=== PATIENT | female | born 1990 | race Caucasian/White ===

== ENCOUNTER 2016-09-01 13:59 | Inpatient (IN) | payer BC, OTHER ==
[~2016-09-01] VITALS: Ht 157.5 cm; Wt 63.0 kg
[~2016-09-01 13:59] MED LIST: ASPI81TA31 PO; ATOR40TA PO; Baclofen PO; CLON0.1T14 PO; DICY20TA28 PO; DIVA500T4 PO; HYDR-3895 PO; IBUP200C5 PO; INSU100I14; INSU100V11; Isosorbide Mononitrate PO; LOSA50TA21 PO; Losartan Potassium PO; Metoprolol Tartrate PO; NICO1PAT44 TD; NITR0.4T SL; PREG25CA PO; QUET200T PO; TRAZ-144 PO; [UNRECOGNIZED DRUG - CODE] MC
[2016-09-02] MEDS ORDERED: MIRALAX 17 GM POWD.PACK PO PRN (14:15)
[2016-09-02] MEDS ORDERED: ONDANSETRON ODT 4 MG TAB.RAPDIS SL PRN (14:15)
[2016-09-02] MEDS ORDERED: DIAZEPAM 10 MG TABLET PO PRN ×2 (14:15)
[2016-09-02] MEDS ORDERED: MAG HYDROX/AL HYDROX/SIMETH 30 ML LIQUID UDC PO PRN (14:15)
[2016-09-02] MEDS ORDERED: DICYCLOMINE HCL 20 MG TABLET PO PRN (14:15)
[2016-09-02] MEDS ORDERED: IBUPROFEN 400 MG TABLET PO PRN (14:15)
[2016-09-02] MEDS ORDERED: LOPERAMIDE HCL 2 MG CAPSULE PO PRN ×2 (14:15)
[2016-09-02] MEDS ORDERED: MAGNESIUM HYDROXIDE 30 ML LIQUID UDC PO PRN (14:15)
[2016-09-02] MEDS ORDERED: LORAZEPAM 2 MG/1 ML VIAL IM PRN (14:15)
[2016-09-02] MEDS ORDERED: DIAZEPAM 5 MG TABLET PO PRN (14:15)
[2016-09-02] MEDS ORDERED: ONDANSETRON 4 MG/2 ML VIAL IM PRN (14:15)
[2016-09-02] MEDS ORDERED: ACETAMINOPHEN 325 MG TABLET PO PRN (14:15)
[2016-09-02] MEDS: PHENOBARBITAL 60 MG TABLET PO SCH ×3 (14:30→21:29)
[2016-09-02 15:48] LABS: BASOPHILS # (AUTO) 0.2 K/uL (0.0-8.0); EOSINOPHILS # (AUTO) 0.1 K/uL (0.0-0.7); EOSINOPHILS % (AUTO) 1.6 % (0.0-7.0); HEMATOCRIT 44.6 % (37-47); HEMOGLOBIN 14.7 G/DL (12.0-16.0); LYMPHOCYTES # (AUTO) 3.2 K/UL (0.8-4.8); LYMPHOCYTES % (AUTO) 34.9 % (20.5-51.5); MEAN CORPUSCULAR HEMOGLOBIN 28.9 UUG (27.0-31.0); MEAN CORPUSCULAR HGB CONC 33 g/dL (32.0-37.0); MONOCYTES # (AUTO) 0.5 K/UL (0.1-1.30); MONOCYTES % (AUTO) 5.4 % (0.0-11.0); NEUTROPHILS # (AUTO) 5.1 K/UL (1.8-8.9); NEUTROPHILS % (AUTO) 56.1 % (38.5-71.5); PLATELET COUNT (AUTO) 296 K/UL (150-450); RED BLOOD CELL COUNT(AUTO) 5.07 MIL/UL (4.2-5.4); WHITE BLOOD COUNT (AUTO) 9.1 K/UL (4.0-11.2)
[2016-09-02] MEDS ORDERED: TOPI50TA24 PO (15:52)
[2016-09-02] MEDS ORDERED: TRAM50TA2 PO (15:52)
[2016-09-02] MEDS ORDERED: ESCI10TA55 PO (15:52)
[2016-09-02] MEDS ORDERED: CLON1TAB4 PO (15:52)
[2016-09-02] MEDS ORDERED: PREG150C PO (15:52)
[2016-09-02] MEDS ORDERED: BUPR-51 PO (15:52)
[2016-09-02 15:53] LABS: ALANINE AMINOTRANSFERASE 19 U/L (14-59); ALKALINE PHOSPHATASE 78 U/L (50-136); AMYLASE 30 U/L (25-115); ASPARTATE AMINOTRANSFERASE 13 U/L (15-37); BILIRUBIN,TOTAL 0.3 mg/dL (0.2-1.0); CARBON DIOXIDE 22 mmol/L (21-32); CHLORIDE 101 mmol/L (98-107); CREATININE 1.2 mg/dL (0.6-1.3); GLUCOSE 246 mg/dL (74-106); LIPASE 68 U/L (73-393); MAGNESIUM 1.8 mg/dL (1.8-2.4); POTASSIUM 3.7 mmol/L (3.5-5.1); TOTAL PROTEIN, SERUM 8.2 g/dL (6.4-8.2); UREA NITROGEN, BLOOD 11 mg/dL (7-18)
[2016-09-02 15:57] LABS: ETHANOL < 3 MG/DL (0-0)
[2016-09-02 16:00] VITALS: BP 127/78
[2016-09-02 16:03] LABS: THYROID STIMULATING HORMONE 0.641 mIU/mL (0.358-3.740)
--- NOTE | 2016-09-02 16:45 | NUR ---
ADMISSION NOTE Pt is a 25 year old female, admitted on 09/02/16 at 1500 for Benzo Dependence and medically supervised withdrawals. Pts skin and body check completed, no contraband found, Pts skin is intact with no wounds lesions or abnormalities noted upon assessment . Pt awake, alert, oriented x 3, gait steady, pt is ambulatory without assistance. Pt weights 139 pounds and her height is 52. Pt reported having multiple seizures due to withdrawals with the most recent one being in April 2016. Pt escorted to room 303 where the rest of assessment was completed. Pt is primary source of information, information consistent, speech coherent. Pt brought home medications which have been reconciled. Pt refused PNA Vaccinations stating that she will receive it somewhere else. Pt states that she has a primary care physician by the name Marek who is located in [place] she denies having a psychiatrist or a psychologist. Pt requested to be full code, controlled Carb diet due to her DM I. Pt was placed on fall and seizure precautions, Pt denies any food or drug allergies . Her last BM was on 09/01/16. Pt states that she lives alone in an apartment building. Pt stated that she smokes a pack a day. Pt denies being admitted to a hospital in the past 30 days, Pt is not a candidate for MRSA. Pts initial vital signs are BP: 127/78, Temp: 98.1, Pulse: 72 SPO2: 100% RR:18 and states that she has 0/10 pain. Pts initial CIWA was a 4. Pt reports PMH of Anxiety, Depression, DM I, a stent placement due to an HI, Diabetic kidney disease and diabetic neuropathy. Pts longest sobriety lasted 11 months which was in 2016. Pt stated that she does not attend AA meetings. Pt denies any suicidal or homicidal ideations. Substance use Hx: 1.Xanax: Pt reported first using the drug in 2008, she has been on and off and has recently relapsed 2 months ago using 8mg PO daily for 2 months. 2.Klonopin: Pt reported first using the drug in 2008, she has been on and off and has recently relapsed 2 months ago using 4mg PO daily for 2 months. Rehab history: [facility] in 2014 [facility] February 2016 [facility] current admission. Pt cooperative, appears depressed, reports moderate anxiety. Educated on relaxation techniques (deep breathing) pt verbalized understanding. Skin warm and moist from sweat, color pink, consistent throughout the body. Eyes PERLLA, tremors not noted but felt. All extremities with full ROM. Lung sounds clear bilaterally, no cough present, pt denies SOB. Heart rate regular. Cap refill <3 sec. No edema noted. Abdomen soft, round, bowel sounds active x 4, non tender. Pt denies urinary difficulties, urine was provided and sent to lab. Pt oriented to unit, room, equipment, shown how to use call light, provided returned demonstration. Fall precautions and seizure in place. Side rails up x2, call light within reach, bed locked in low position. MD contacted and aware of patients condition. All admitting orders have been placed. Pt is placed on a Modified Phenobarbital taper. Pt refused her Vitamin B injection. Her Initial CIWA score was a 4.
[2016-09-02 17:11] LABS: *URINE HCG, QUAL NEGATIVE (NEGATIVE)
[2016-09-02 17:23] LABS: *AMPHETAMINE, URINE NEGATIVE (NEGATIVE); *CANNABINOID, URINE NEGATIVE (NEGATIVE); *COCCAINE, URINE NEGATIVE (NEGATIVE); *OPIATE, URINE NEGATIVE (NEGATIVE); *PHENCYCLIDINE SCREEN,URINE NEGATIVE (NEGATIVE)
[2016-09-02] MEDS ORDERED: THIAMINE HCL 200 MG/2 ML VIAL IM ONE (17:30)
--- NOTE | 2016-09-02 17:36 | NUR ---
Scheduled dose held A scheduled dose of phenobarbital was held at 1430 due to patient not being able to provide urine for a drug screen as well as a test. Pharmacy was not able to verify the medication until the urine results came back. MD contacted and aware, no new orders obtained will continue to monitor.
[2016-09-02 17:37] LABS: *BARBITURATE, URINE NEGATIVE (NEGATIVE)
[2016-09-02] MEDS ORDERED: [UNRECOGNIZED DRUG - OTHER] SQ PRN (18:00)
[2016-09-02] MEDS ORDERED: BLOOD SUGAR DIAGNOSTIC 1 EACH STRIP VI SCH ×2 (18:00)
[2016-09-02] MEDS ORDERED: PATIENT MAY USE OWN MED- MD OK SQ PRN (18:00)
[2016-09-02] MEDS ORDERED: NITROGLYCERIN 0.4 MG/TAB BOTTLE SL PRN (18:00)
[2016-09-02] MEDS ORDERED: DEXTROSE 50% 50 ML DISP.SYRIN IV PRN (18:30)
--- NOTE | 2016-09-02 19:00 | NUR ---
Tramadol 50mg po prn given for bilateral foot pain due to diabetic neuropathy. Pain 07/29.
[2016-09-02] MEDS: TRAMADOL HCL 50 MG TABLET PO PRN (19:01)
--- NOTE | 2016-09-02 19:16 | NUR ---
End Of Shift Pt remains compliant with the treatment plan. Patient encouraged adequate PO fluid intake as tolerated. Upon assessment patient presented with mild anxiety, and barely sweating with his last CIWA score was a 4. @1600. Detox medication effective at reducing withdrawal symptoms. Patient encouraged to attend group therapies/sessions to learn new coping skills to recent relapse, patient denies SI/HI. Pt ate all of her meals her total fluid intake was 500ml with 1 void and no bowel movement Pt received PRN Ultram for pain, medication was effective.Safety measures in place. Call light kept within reach. Patient endorsed to warehouse shift supervisor nurse, all pertinent information discussed.
--- NOTE | 2016-09-02 19:56 | NUR ---
START OF SHIFT NOTE Pt is a 25 y/o female admitted for Xanax and Klonopin dependence and use. Pt has NKA but reported a PMH of heart attacks (2013,2015), kidney disease, ankle bilateral fracture. Pt is a type 1 diabetic and has a insulin pump. Per day shift nurse pt was placed on a Modified Phenobarbital taper. Pt received Tramadol 50 mg PO PRN during the day shift. Last CIWA: 4 (1600). At this time pt is asleep in bed with no signs of discomfort/distress noted. Assessment deferred until pt is awake. All safety measures in place. Will continue to monitor.
[2016-09-02 20:00] VITALS: BP 112/81
--- NOTE | 2016-09-02 20:00 | NUR ---
TRAMADOL PRN REASSESSMENT Pt stated " My foot feel better." PRN effective. Will continue to monitor.
[2016-09-02] MEDS: METOPROLOL TARTRATE 25 MG TABLET PO SCH (21:29)
[2016-09-02] MEDS: LAMOTRIGINE 25 MG TABLET PO SCH (21:30)
[2016-09-02] MEDS: PREGABALIN 25 MG CAPSULE PO SCH (21:32)
[2016-09-02] MEDS: DIVALPROEX ER 500 MG TAB.SR.24H PO SCH (21:32)
[2016-09-02] MEDS: ATORVASTATIN 40 MG TABLET PO SCH (21:33)
[2016-09-02] MEDS: BACLOFEN 20 MG TABLET PO PRN (21:49)
--- NOTE | 2016-09-02 21:49 | NUR ---
BACLOFEN, BENTYL, AND ZOFRAN PRN ADMINISTRATION Pt stated " I'm nauseous, my body aches, and I have stomach cramps. Can I have something?" Baclofen 20 mg PO PRN, Bentyl 20 mg PO PRN, and Zofran 4 mg ODT PRN was given. Pt was encouraged to notify staff of any changes in condition or of any concerns. Pt verbalized an understanding. All safety measures in place. Will monitor for effectiveness.
[2016-09-02] MEDS: BLOOD SUGAR DIAGNOSTIC 1 EACH STRIP VI SCH (21:59)
[2016-09-02] MEDS ORDERED: QUETIAPINE FUMARATE 100 MG TABLET PO SCH (22:15)
[2016-09-02] MEDS ORDERED: QUETIAPINE FUMARATE 100 MG TABLET ONE (22:32)
--- NOTE | 2016-09-02 22:49 | NUR ---
BACLOFEN, BENTYL, AND ZOFRAN PRN REASSESSMENT Pt stated " The nausea and stomach cramps went away. I'm not that achy either." PRNS effective. All safety measures in place. Will continue to monitor.
--- NOTE | 2016-09-02 23:52 | NUR ---
SEROQUEL PRN ADMINISTRATION Pt stated " I feel anxious and just agitated. Can I have something ?" Seroquel 100 mg PO PRN was given. Pt was encouraged to notify staff of any changes in condition or of any concerns. Pt verbalized an understanding. All safety measures in place. Will monitor for effectiveness.
[2016-09-03] VITALS: BP 103/70
[2016-09-03] MEDS ORDERED: CLONIDINE HCL 0.1 MG TABLET ONE (00:45)
--- NOTE | 2016-09-03 00:52 | NUR ---
SEROQUEL PRN REASSESSMENT Pt stated " I feel calmer. I think I need to talk to the doctor tomorrow. " PRN effective. Will continue to monitor.
[2016-09-03] MEDS: CLONIDINE HCL 0.1 MG TABLET PO PRN ×2 (01:00→23:58)
--- NOTE | 2016-09-03 04:00 | NUR ---
VITALS REFUSED/ CIWA DEFERRED Pt refused to have vitals taken at this time. Pt was encouraged x 3 with risks and benefits explained, but the pt still declined. Pt is asleep in bed with no signs of discomfort/distress noted. CIWA assessment deferred until pt is awake. All safety measures in place. Will continue to monitor. Addendum: 09/03/16 at 0622 by GABRIEL MANUEL LVN Amended: Links added.
--- NOTE | 2016-09-03 06:53 | NUR ---
END OF SHIFT NOTE Pt is a 25 y/o female admitted for Xanax and Klonopin dependence and use. Pt has NKA but reported a PMH of heart attacks (2013,2015), kidney disease, ankle bilateral fracture. Pt is a type 1 diabetic and has a insulin pump. Pt was placed on a Modified Phenobarbital taper and is tolerating medication well, with no s/e or a/r reported. Pt received Baclofen 20 mg PO PRN, Bentyl 20 mg PO PRN, Zofran 4 mg ODT PRN, and Seroquel 100 mg PO PRN during the shift. Last CIWA: 1 (0000). Pt slept for a total of 5 hours. All safety measures in place. Will endorse to the oncoming nurse.
[2016-09-03] MEDS ORDERED: QUETIAPINE FUMARATE 100 MG TABLET PO PRN (07:25)
--- NOTE | 2016-09-03 07:26 | NUR ---
START OF SHIFT NOTE Received report from night nurse, 25 year old female admitted for Benzo dependence. Pt reported a PMH of heart attacks (2013,2015), kidney disease, ankle bilateral fracture. Pt is a type 1 diabetic and has a insulin pump. Per day shift nurse pt was placed on a Modified Phenobarbital taper. Pt received PRN Seroquel, Bentyl, Baclofen, Zofran,during the restaurant shift leader. Last CIWA-1. Currently pt is asleep in bed with no signs of discomfort/distress noted responsive to verbal and tactile stimuli. Breathing normal no SOB noted. Safety measures in place, Call light within reach. Will continue to monitor.
[2016-09-03 08:00] VITALS: BP 116/67
--- NOTE | 2016-09-03 08:00 | NUR ---
BLOOD SUGAR RESULT PT's blood sugar noted 317mg/dl, pt self administered 6 units of regular insulin. notified.
[2016-09-03] MEDS: THIAMINE HCL 100 MG TABLET PO SCH (08:19)
[2016-09-03] MEDS: ASPIRIN 81 MG TAB.CHEW PO SCH (08:19)
[2016-09-03] MEDS: LAMOTRIGINE 25 MG TABLET PO SCH ×2 (08:19→20:46)
[2016-09-03] MEDS: FOLIC ACID 1 MG TABLET PO SCH (08:19)
[2016-09-03] MEDS: DOCUSATE SODIUM 250 MG CAPSULE PO SCH (08:19)
[2016-09-03] MEDS: METOPROLOL TARTRATE 25 MG TABLET PO SCH ×2 (08:20→20:47)
[2016-09-03] MEDS: LOSARTAN POTASSIUM 50 MG TABLET PO SCH (08:20)
[2016-09-03] MEDS: PHENOBARBITAL 60 MG TABLET PO SCH ×4 (08:21→20:47)
[2016-09-03] MEDS: DIVALPROEX ER 500 MG TAB.SR.24H PO SCH ×2 (08:21→20:47)
[2016-09-03] MEDS: MULTIVITAMINS,THERAPEUTIC TABLET PO SCH (08:21)
[2016-09-03] MEDS: ISOSORBIDE DINITRATE 30 MG PO SCH (08:22)
[2016-09-03] MEDS: BLOOD SUGAR DIAGNOSTIC 1 EACH STRIP VI SCH ×4 (08:27→20:45)
[2016-09-03] MEDS: NICOTINE 14 MG/24HR PATCH TD SCH (09:00)
[2016-09-03] MEDS ORDERED: buPROPion XL 150 MG TAB.SR.24H PO SCH (09:00)
[2016-09-03] MEDS ORDERED: TUBERCULIN,PURIF.PROT.DERIV. 5 TU/0.1 ML TEST ID ONE (09:00)
[2016-09-03] MEDS: PREGABALIN 25 MG CAPSULE PO SCH ×3 (09:04→20:46)
[2016-09-03] MEDS: BACLOFEN 20 MG TABLET PO PRN (11:02)
[2016-09-03] MEDS: TRAMADOL HCL 50 MG TABLET PO PRN ×2 (11:05→23:57)
--- NOTE | 2016-09-03 11:06 | NUR ---
PRN TRAMADOL/BACLOFEN Pt c/o of bilateral foot pain due to diabetic neuropathy, muscle spasms. Administered PRN Tramadol 50mg Po, Baclofen 20mg Po given for Pain/muscle spasms 07/29. Will cont to monitor and reassess.
--- NOTE | 2016-09-03 11:51 | NUR ---
REFUSED ACCU CHECK Pt refused Accu check at 1130, offered x3 risk and benefits explained. Patient still refused. notified
[2016-09-03 12:00] VITALS: BP 100/60
[2016-09-03] MEDS ORDERED: ONDANSETRON ODT 4 MG TAB.RAPDIS SL PRN (12:00)
[2016-09-03] MEDS ORDERED: ONDANSETRON 4 MG/2 ML VIAL IM PRN (12:00)
--- NOTE | 2016-09-03 12:06 | NUR ---
REASSESSMENT Upon reassessment pt reported medications effective, pain decreased 2/10, muscle cramps subside. Will cont to monitor.
[2016-09-03] MEDS: BACLOFEN 20 MG TABLET PO SCH ×4 (12:40→20:46)
[2016-09-03] MEDS ORDERED: DIAZEPAM 10 MG TABLET PO PRN ×2 (14:00)
[2016-09-03] MEDS: DICYCLOMINE HCL 20 MG TABLET PO SCH ×2 (14:00→20:46)
[2016-09-03] MEDS ORDERED: DIAZEPAM 5 MG TABLET PO PRN (14:00)
[2016-09-03 16:00] VITALS: BP 111/73
--- NOTE | 2016-09-03 16:30 | NUR ---
REFUSED ACCU CHECK Pt refused Accu check at 1630, offered x3 risk and benefits explained. Patient still refused. notified
[2016-09-03] MEDS ORDERED: PATIENT MAY USE OWN MED- MD OK PO SCH (17:00)
--- NOTE | 2016-09-03 18:55 | NUR ---
END OF SHIFT NOTE Pt cont with modified Phenobarbital taper tolerating well. Pt presented with muscle aches, bilateral foot pain during shift. Pt given PRN Baclofen,Tramadol noted to be effective. Last CIWA score noted 6. Pt attended groups and activities. During shift pt refused x2 blood sugar MD notified. Encouraged pt increased Po fluids intake as tolerated and attend groups and activities to learn new coping skills. Vital signs remained stable. Pt remained compliant with care and medications. During shift pt was seen by MD Tillman, and Psychiatrist with new orders. Baclofen changed from PRN to routine. Safety measures in place, Call light within reach. Pt endorsed to night nurse in stable condition.
--- NOTE | 2016-09-03 19:50 | NUR ---
Start of Shift Note: Report received from day shift nurse. Pt is a 25 Y/O female admitted on 09/02/16 for medically-supervised withdrawal from benzodiazepines. Pt reported taking 8mg of Xanax and 4mg of Klonopin daily for two months. Pt is on a modified 7-day Phenobarbital taper. Pt received with last CIWA=6, and PRN Baclofen and PRN Ultram were given during day shift. Pt is a full code, reports NKDA/NKFA, and is on a CC/Diabetic diet. 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 Pt received in room and reports anxiety, tremor, and diaphoresis. Bed is in low position and locked, side rails up x2, call light within reach. Will continue to monitor.
[2016-09-03 20:00] VITALS: BP 113/74
[2016-09-03] MEDS: QUETIAPINE FUMARATE 200 MG TABLET PO SCH ×2 (20:46→22:13)
[2016-09-03] MEDS: ATORVASTATIN 40 MG TABLET PO SCH (20:47)
--- NOTE | 2016-09-03 21:00 | NUR ---
FSBS: Fingerstick blood glucose at HS is 98 mg/dl.
--- NOTE | 2016-09-03 22:10 | NUR ---
21:00 Seroquel Late: Scheduled 21:00 Seroquel administered late due to patient being on the smoking patio without a smoking pass from primary nurse.
[2016-09-03] MEDS: HYDROXYZINE PAMOATE 25 MG CAPSULE PO PRN (23:57)
--- NOTE | 2016-09-03 23:59 | NUR ---
PRN's Tramadol, Clonidine, and Vistaril: Patient complains of 7/10 neuropathic pain in bilateral feet. Administered PRN Tramadol as ordered. Patient complains of severe anxiety and diaphoresis. Patient requests both Vistaril and Clonidine. Administered PRN Clonidine and PRN Vistaril as ordered. Will continue to monitor.
[2016-09-04] VITALS: BP 118/84
--- NOTE | 2016-09-04 01:00 | NUR ---
PRN Reassessment: Patient is in bed with eyes closed. Respirations are even and unlabored at 14. Patient is difficult to arouse. No s/s of acute distress noted. PRN's Tramadol, Vistaril, and Catapres effective AEB patient's ability to rest. All safety precautions are in place. Will continue top monitor.
[2016-09-04 04:00] VITALS: BP 121/76
--- NOTE | 2016-09-04 04:00 | NUR ---
CIWA Deferred: CIWA assessment is deferred for sleep. V/S stable. All safety precautions are in place. Will continue to monitor. Addendum: 09/04/16 at 0454 by OKSANA WHITT RN Amended: Links added.
--- NOTE | 2016-09-04 06:47 | NUR ---
Pt is a 25 Y/O female admitted to [facility] on 09/02/16 for medically-supervised withdrawal from benzodiazepines. 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 Pt is a full code. Pt reports NKDA/NKFA. Pt is on a CC/Diabetic diet. Pt reported taking 8mg of Xanax and 4mg of Klonopin daily for two months, and was placed on a modified 7-day Phenobarbital taper. Scheduled medication regime effectively managed s/s of withdrawal this shift, in addition to PRN Catapres and PRN Vistaril for anxiety. Last CIWA=5 at 00:00.V/S stable throughout shift. PRN Tramadol was given for neuropathic pain. Total fluid intake this shift: 1105 ml; output: urine x 3 and BM x 0. Pt is currently in bed and slept 4 hours this shift. All needs attended and met. Pt endorsed to day shift nurse. Addendum: 09/04/16 at 0648 by OKSANA WHITT RN Last FSBG was 98 mg/dl at 21:00
[2016-09-04] MEDS: BLOOD SUGAR DIAGNOSTIC 1 EACH STRIP VI SCH ×4 (07:30→21:00)
--- NOTE | 2016-09-04 07:43 | NUR ---
START OF SHIFT NOTE Received report from night nurse, 25 year old female admitted for Benzo dependence. Pt reported a PMH of heart attacks (2013,2015), kidney disease, ankle bilateral fracture. Pt is a type 1 diabetic and has a insulin pump. Pt cont on a Modified Phenobarbital taper. Pt received PRN Tramadol, Clonidine, Vistaril, during the hourly shift manager. Last CIWA-5, slept for 4 hours. Last BS was 98mg/dl. Currently pt is asleep in bed with no signs of discomfort/distress noted responsive to verbal and tactile stimuli. Breathing normal no SOB noted. Safety measures in place, Call light within reach. Will continue to monitor.
[2016-09-04 08:00] VITALS: BP 115/77
--- NOTE | 2016-09-04 08:00 | NUR ---
REFUSED ACCU CHECK Pt refused Accu check at 0730, offered x3 risk and benefits explained. Patient still refused. notified
[2016-09-04] MEDS: DOCUSATE SODIUM 250 MG CAPSULE PO SCH (08:43)
[2016-09-04] MEDS: THIAMINE HCL 100 MG TABLET PO SCH (08:43)
[2016-09-04] MEDS: DICYCLOMINE HCL 20 MG TABLET PO SCH ×3 (08:43→21:47)
[2016-09-04] MEDS: PHENOBARBITAL 60 MG TABLET PO SCH ×3 (08:43→21:46)
[2016-09-04] MEDS: BACLOFEN 20 MG TABLET PO SCH ×4 (08:43→21:48)
[2016-09-04] MEDS: LAMOTRIGINE 25 MG TABLET PO SCH ×2 (08:44→21:47)
[2016-09-04] MEDS: MULTIVITAMINS,THERAPEUTIC TABLET PO SCH (08:44)
[2016-09-04] MEDS: ASPIRIN 81 MG TAB.CHEW PO SCH (08:44)
[2016-09-04] MEDS: LOSARTAN POTASSIUM 50 MG TABLET PO SCH (08:44)
[2016-09-04] MEDS: FOLIC ACID 1 MG TABLET PO SCH (08:44)
[2016-09-04] MEDS: ESCITALOPRAM OXALATE 10 MG TABLET PO SCH (08:44)
[2016-09-04] MEDS: METOPROLOL TARTRATE 25 MG TABLET PO SCH ×2 (08:45→21:50)
[2016-09-04] MEDS: PREGABALIN 25 MG CAPSULE PO SCH ×3 (08:45→21:48)
[2016-09-04] MEDS: DIVALPROEX ER 500 MG TAB.SR.24H PO SCH ×2 (08:45→21:51)
[2016-09-04] MEDS: ISOSORBIDE DINITRATE 30 MG PO SCH (08:47)
[2016-09-04] MEDS: NICOTINE 14 MG/24HR PATCH TD SCH (08:48)
[2016-09-04] MEDS: TRAMADOL HCL 50 MG TABLET PO PRN ×3 (08:58→23:05)
--- NOTE | 2016-09-04 08:58 | NUR ---
PRN TRAMADOL Pt c/o of bilateral foot pain due to diabetic neuropathy. Administered PRN Tramadol 50mg Po given for Pain 08/28. Will cont to monitor and reassess.
--- NOTE | 2016-09-04 09:58 | NUR ---
REASSESSMENT Upon reassessment pt reported medication effective, pain decreased /. Will cont to monitor.
--- NOTE | 2016-09-04 11:30 | NUR ---
REFUSED ACCU CHECK Pt refused Accu check at 1130, offered x3 risk and benefits explained. Patient still refused. notified
[2016-09-04 12:00] VITALS: BP 104/60
[2016-09-04] MEDS ORDERED: LORAZEPAM 1 MG TABLET PO ONE (14:00)
[2016-09-04 14:08] LABS: HEPATITIS B SURFACE AG Negative (Negative)
[2016-09-04 16:00] VITALS: BP 118/57
--- NOTE | 2016-09-04 16:30 | NUR ---
REFUSED ACCU CHECK Pt refused Accu check at 1630, offered x3 risk and benefits explained. Patient still refused. notified
--- NOTE | 2016-09-04 17:10 | NUR ---
PRN TRAMADOL Pt c/o of bilateral foot pain due to diabetic neuropathy. Administered PRN Tramadol 50mg Po given for Pain 07/29. Will cont to monitor and reassess.
--- NOTE | 2016-09-04 18:10 | NUR ---
REASSESSMENT Upon reassessment pt reported medication effective, pain decreased 2/10. Will cont to monitor.
--- NOTE | 2016-09-04 18:57 | NUR ---
END OF SHIFT NOTE Pt cont with modified Phenobarbital taper tolerating well. Pt presented with muscle aches, bilateral foot pain during shift. Pt given PRN Tramadolx2 noted to be effective. Last CIWA score noted 5. Pt attended groups and activities. During shift pt refused x3 blood sugar MD notified. Encouraged pt increased Po fluids intake as tolerated and attend groups and activities to learn new coping skills. Vital signs remained stable. Pt remained compliant with care and medications. During shift pt was seen by Nehal Larios, and Psychiatrist. Pt received x1 dose of Ativan 2mg. Safety measures in place, Call light within reach. Pt endorsed to night nurse in stable condition.
--- NOTE | 2016-09-04 19:15 | NUR ---
START OF SHIFT Received 25 year old female patient admitted on 09/02/16 for Xanax and Klonopin dependency. Pt is full code with NKA. She is on a controlled carb diet. She reports a PMHx of DM type I, heart attack 2013 & 2015, kidney disease, ankle bilateral fracture, anxiety, seizure, panic disorder, diabetic neuropathy, CAD, unspecified arrythmia, HTN, and dyslipidemia. She report taking Xanax PO 8 mg daily for 2 months, last dose 8 mg on 09/01/16, Klonopin 4 mg daily for 2 months. Last dose was 4 mg on 09/01/16. She is placed on a modified phenorbabital taper started on 09/02/16 and tolerating well. Per endorsement, pt received Tramadol x2, And Ativan 2 mg x1. She has also been refusing her Accucheck is aware. Pt is alert and oriented x4, breathing is even and unlabored, safety measurse in place. Will continue to monitor.
[2016-09-04 20:00] VITALS: BP 131/85
[2016-09-04] MEDS: ATORVASTATIN 40 MG TABLET PO SCH (21:47)
--- NOTE | 2016-09-04 21:50 | NUR ---
ACCU CHECK REFUSAL Pt refused 2100 Accu check. Risks and benefits explained x3, pt still refused. MD made aware. Will continue to monitor.
[2016-09-04] MEDS: QUETIAPINE FUMARATE 200 MG TABLET PO SCH (21:53)
[2016-09-04] MEDS ORDERED: METHOCARBAMOL 750 MG TABLET PO PRN (22:45)
[2016-09-04] MEDS ORDERED: METHOCARBAMOL 750 MG TABLET PO ONE (22:45)
[2016-09-04] MEDS: CLONIDINE HCL 0.1 MG TABLET PO PRN (23:03)
[2016-09-04] MEDS: HYDROXYZINE PAMOATE 25 MG CAPSULE PO PRN (23:03)
--- NOTE | 2016-09-04 23:05 | NUR ---
PRN VISTARIL,CLONIDINE, TRAMADOL Pt complains of anxiety, agitation, chills and bilateral burning foot pain /. PRN Vistaril, clonidine and Tramadol administered as ordered. Breathing even and unlabored, call light within reach. Will continue to monitor effectiveness of medications.
--- NOTE | 2016-09-04 23:06 | NUR ---
MD COMMUNICATION Pt complains of muscle aches 09/28. Received new order for Robaxin 750 mg x1. Administered as ordered. Breathing even and unlabored. Will monitor effectiveness of medication.
[2016-09-05] VITALS: BP 120/75
--- NOTE | 2016-09-05 00:05 | NUR ---
PRN VISTARIL, CLONIDINE, TRAMADOL REASSESSMENT PRN medications effective. Pt noted to be more calm, less anxious/agitated. Pt reports decrease in pain to 3/10. Breathing even and unlabored. Will continue to monitor.
--- NOTE | 2016-09-05 00:06 | NUR ---
ROBAXIN REASSESSMENT One time Robaxin effective. Pt reports decrease in muscle aches /. Breathing even and unlabored. Will monitor.
[2016-09-05 04:00] VITALS: BP 115/76
--- NOTE | 2016-09-05 04:00 | NUR ---
CIWA DEFERRED CIWA deferred d/t pt lying in bed with eyes closed noted to be asleep. Respirations 16, breathing is even and unlabored, safety measures in place. Will monitor.
--- NOTE | 2016-09-05 07:08 | NUR ---
END OF SHIFT Pt is a 25 year old female patient admitted on 09/02/16 for Xanax and Klonopin dependency. Pt is full code with NKA. She is on a controlled carb diet. She reports a PMHx of DM type I, heart attack 2013 & 2015, kidney disease, ankle bilateral fracture, anxiety, seizure, panic disorder, diabetic neuropathy, CAD, unspecified arrythmia, HTN, and dyslipidemia. She continues on a modified phenobarbital taper started on 09/02/16 and tolerating well. At 2305 she received PRN Vistaril, clonidine, and tramadol. She also received one time order for Robaxin d/t complains of body aches 09/28. She refused her 2100 Accu check. MD aware. She slept a total of 6hrs, Intake: 1200mL, Void: x1, BM: 0, CIWA3. Pt remains alert and oriented x4, breathing is even and unlabored, safety measures in place. Endorsed to oncoming shift.
[2016-09-05] MEDS: BLOOD SUGAR DIAGNOSTIC 1 EACH STRIP VI SCH ×4 (07:30→21:59)
--- NOTE | 2016-09-05 07:36 | NUR ---
Start of Shift Received 25 year old pt admitted on 09/02/16 for Benzo detoxification (Xanax and Klonopin ). Pt is full code and NKDA. Pt is type 1 diabetic and on a controlled carb diet. Pt is noted to refuse staff administered accu-checks. Pt endorses a PMH of DM 1, DC, Kidney disease, bi-lateral ankle fracture, anxiety DO, Seizures, Panic DO, diabetic neuropathy, CAD, HTN, Dyslipidemia and unspecified arrhythmia. Pt currently on a modified Phenobarbital taper, started 09/02, pt is tolerating well. Per [facility] nurse, pt received Vistaril, Clonidine, Tramadol and Robaxin PRN. All noted to be effective, as pt is currently resting in bed. Last CIWA of 3 recorded at 0000. Pt has slept for 6 hours during the NOC shift. Pt is on seizure, fall and universal precautions. Bed in low position with wheels locked, side rails up x2 and call light within reach. Marketing Financial Analyst encounters pt resting in bed with eyes closed, respirations unlabored, even, in no distress at this time. Will continue to monitor, support and encourage according to plan of care.
--- NOTE | 2016-09-05 07:42 | NUR ---
Accu-check refusal Pt educated on importance of blood sugar monitoring and need for staff being aware. Paper Maker asked x3 with pt refusing accu-check. aware.
[2016-09-05 08:23] VITALS: BP 130/92
[2016-09-05] MEDS: DICYCLOMINE HCL 20 MG TABLET PO SCH ×3 (08:36→21:39)
[2016-09-05] MEDS: DOCUSATE SODIUM 250 MG CAPSULE PO SCH (08:36)
[2016-09-05] MEDS: ASPIRIN 81 MG TAB.CHEW PO SCH (08:36)
[2016-09-05] MEDS: FOLIC ACID 1 MG TABLET PO SCH (08:37)
[2016-09-05] MEDS: LOSARTAN POTASSIUM 50 MG TABLET PO SCH (08:37)
[2016-09-05] MEDS: DIVALPROEX ER 500 MG TAB.SR.24H PO SCH ×2 (08:37→21:40)
[2016-09-05] MEDS: PREGABALIN 25 MG CAPSULE PO SCH ×3 (08:38→21:37)
[2016-09-05] MEDS: BACLOFEN 20 MG TABLET PO SCH ×4 (08:38→21:39)
[2016-09-05] MEDS: METOPROLOL TARTRATE 25 MG TABLET PO SCH ×2 (08:38→21:41)
[2016-09-05] MEDS: LAMOTRIGINE 25 MG TABLET PO SCH ×2 (08:38→21:39)
[2016-09-05] MEDS: ESCITALOPRAM OXALATE 10 MG TABLET PO SCH (08:38)
[2016-09-05] MEDS: ISOSORBIDE DINITRATE 30 MG PO SCH (08:39)
[2016-09-05] MEDS: MULTIVITAMINS,THERAPEUTIC TABLET PO SCH (08:39)
[2016-09-05] MEDS: PHENOBARBITAL 60 MG TABLET PO SCH ×4 (08:39→21:52)
[2016-09-05] MEDS: THIAMINE HCL 100 MG TABLET PO SCH (08:39)
[2016-09-05] MEDS: TRAMADOL HCL 50 MG TABLET PO PRN (08:40)
--- NOTE | 2016-09-05 08:40 | NUR ---
PRN Administration Pt complain of pain 9/10 in bi-lateral hips. Non-pharmacological interventions attempted x3 with no relief. Head Inspector And Center Marker administered Tramadol per MD order. Will re-evaluate and continue to monitor, support and encourage according to plan of care.
[2016-09-05] MEDS: NICOTINE 14 MG/24HR PATCH TD SCH (08:45)
--- NOTE | 2016-09-05 09:44 | NUR ---
PRN Re-assessment Pt intermittently dozing, but wanting to get up for the day. Oriented x4. Complains of chronic pain, still rates pain as 6/10. Pt states will ask MD for Lidocaine patch. Will continue to monitor, support and encourage according to plan of care.
--- NOTE | 2016-09-05 11:43 | NUR ---
Endorsed care to Claire, after pt made request to have a new nurse. Pt complained staff did not communicate and was tired of having to repeat herself.
--- NOTE | 2016-09-05 11:44 | NUR ---
Assumed Care: Assumed care for the patient at this time. Patient is a 25 year old female admitted for BZO dependence who was placed on a 7-day modified Phenobarbital taper as ordered. NO adverse reactions noted. Has past medical hx of DM type I, heart attack in 2013 and 2014, kidney disease, bilateral ankle fracture, anxiety, depression, diabetic neuropathy, CAD, HTN and hylipidemia. Prior to admission, patient was using 8 mg of Xanax and 4 mg of Klonopin as ordered. Patient becomes emotional during the day and requires constant reassurance. Non-compliant with insulin checks. Will continue to monitor and provide support.
[2016-09-05] MEDS: HYDROXYZINE PAMOATE 25 MG CAPSULE PO PRN (11:52)
[2016-09-05] MEDS: CLONIDINE HCL 0.1 MG TABLET PO PRN (11:53)
--- NOTE | 2016-09-05 11:53 | NUR ---
Vistaril 50 mg PO and Clonidine 0.1mg PO: Patient noted with severe anxiety and moderately agitated. Redirected and reassurance provided with no help. OH 106. Medicated patient with Vistaril 50 mg and Clonidine 0.1mg PO for agitation, anxiety and sweats. Will monitor for effectiveness.
[2016-09-05 12:00] VITALS: BP 124/60
--- NOTE | 2016-09-05 12:24 | NUR ---
Accucheck refused: Patient refused accucheck at this time. Multiple staff encouraged the patient to have her BS check. Educated the patient multiple times but patient strongly refuses. Education provided on the s/s of hypo/hyperglycemia. Noted patient to be non-compliant with diet. Currently on a controlled carb diet however, patient continues to refuse. Will continue to monitor closely.
--- NOTE | 2016-09-05 12:53 | NUR ---
Re-assessment: Per patient, PRN Clonidine and Vistaril were effective in reducing pain, anxiety, sweats and agitation.
--- NOTE | 2016-09-05 12:56 | NUR ---
MD Communication: Discussed patient's current condition to MD, also discussed patient's refusal of her accucheck since 09/03/2016. MD Tillman is fully aware of patient's behavior. MD Tillman also encouraged patient to have her blood sugar checked as well as multiple staff members and administration. Emphasized the importance of getting her blood sugar check and to also comply with diet orders. Patient is non-compliant with diet, seen to be eating Snickers, multiple bengali vanilla creamers, and gummy bears. Reinforced diet regimen but patient just laughed and said "I know what I am doing, I wish everyone could just leave me alone." Will continue to monitor and educate the patient on the risk and benefits. Patient states "whatever."
[2016-09-05] MEDS ORDERED: CLONIDINE HCL 0.1 MG TABLET PO PRN (13:15)
[2016-09-05] MEDS ORDERED: ACETAMINOPHEN ES 500 MG TABLET PO PRN (13:30)
[2016-09-05 15:11] LABS: BASOPHILS # (AUTO) 0.3 K/uL (0.0-8.0); BASOPHILS % (AUTO) 1.2 % (0.0-2.0); EOSINOPHILS # (AUTO) 0.2 K/uL (0.0-0.7); EOSINOPHILS % (AUTO) 0.9 % (0.0-7.0); HEMATOCRIT 40.2 % (37-47); HEMOGLOBIN 13.2 G/DL (12.0-16.0); LYMPHOCYTES # (AUTO) 2.6 K/UL (0.8-4.8); LYMPHOCYTES % (AUTO) 11.8 % (20.5-51.5); MAGNESIUM 1.5 mg/dL (1.8-2.4); MEAN CORPUSCULAR HEMOGLOBIN 29.8 UUG (27.0-31.0); MEAN CORPUSCULAR HGB CONC 33 g/dL (32.0-37.0); MEAN CORPUSCULAR VOLUME 90.5 FL (81.0-99.0); MONOCYTES # (AUTO) 0.3 K/UL (0.1-1.30); MONOCYTES % (AUTO) 1.4 % (0.0-11.0); NEUTROPHILS # (AUTO) 18.8 K/UL (1.8-8.9); NEUTROPHILS % (AUTO) 84.7 % (38.5-71.5); PHOSPHOROUS 2.2 mg/dL (2.5-4.9); PLATELET COUNT (AUTO) 226 K/UL (150-450); POTASSIUM 4.2 mmol/L (3.5-5.1); RED BLOOD CELL COUNT(AUTO) 4.44 MIL/UL (4.2-5.4)
[2016-09-05 15:13] LABS: WHITE BLOOD COUNT (AUTO) 22.2 K/UL (4.0-11.2)
--- NOTE | 2016-09-05 15:18 | NUR ---
MD Communication: Labs Notified Dr. Tillman of patient's WBC 22.2H. Patient denies any complains of bladder pain or burning upon urination. No complains of nasal congestion, runny nose and cough. Per MD, continue to monitor at this time and wait for all the other labs come back. Will continue to monitor.
[2016-09-05 15:54] LABS: BAND % (MANUAL) 4 % (0-10); EOSINOPHILS % (MANUAL) 1 % (0-8); LYMPHOCYTES % (MANUAL) 13 % (20-40); MONOCYTES % (MANUAL) 2 % (2-10); NEUTROPHILS % (MANUAL) 80 % (42-75)
[2016-09-05 16:00] VITALS: BP 126/81
[2016-09-05] MEDS: HYDROXYZINE PAMOATE 25 MG CAPSULE PO SCH ×2 (16:17→21:41)
--- NOTE | 2016-09-05 16:17 | NUR ---
Tylenol ES PO given: Patient noted with complain of 7/10 pain related to diabetic neuropathy. Unable to be relieved with non-pharmacological intervention. Medicated patient with Tylenol ES PO as ordered. Will monitor for effectiveness.
--- NOTE | 2016-09-05 16:28 | NUR ---
MD Communication: Informed Dr. Tillman of patient's abnormal labs specifically WBC 22.2H, Glucose 249H, Phosphorus 2.2L, Magnesium 1.5L, Total CK 452H, and Sodium 135L. Per MD, do UA with C&S now and will look into the patient's chart and enter in any orders. Will continue to monitor. Patient continues to be afebrile. No s/s of hypo/hyperglycemia noted. No complains of bladder pain or discomfort noted.
--- NOTE | 2016-09-05 16:37 | NUR ---
Accucheck refused: Patient refused accucheck again. Multiple staff encouraged the patient to have her BS check. Educated the patient multiple times but patient strongly refuses. Patient rudely states "You guys are so uneducated about this stuff!" Education provided on the s/s of hypo/hyperglycemia. Noted patient to be non-compliant with diet.Seen to continue to eat ice cream sandwiches, chocolate ice cream and snickers bar. Currently on a controlled carb diet however, patient continues to refuse. Will continue to monitor closely.
--- NOTE | 2016-09-05 17:17 | NUR ---
Re-assessment: Per patient, PRN TYlenol was mildly effective in reducing her pain.
[2016-09-05] MEDS: METHOCARBAMOL 750 MG TABLET PO PRN (18:16)
--- NOTE | 2016-09-05 18:17 | NUR ---
Robaxin 750 mg PO given: Patient continues to complain of muscle aches and pains 08/28. Medicated patient with Robaxin 750 mg PO as ordered. Will monitor for effectiveness.
--- NOTE | 2016-09-05 18:52 | NUR ---
MD Communication: Spoke with MD Tillman and new orders were obtained for patient to have repeat labs in AM, D/C statins, Insert IV and administer IVF of NS at 150cc/hr x 12 hours only for hydration. Notified patient and education provided. Patient is refusing IV at this time. Will endorse to night nurse to follow up.
--- NOTE | 2016-09-05 18:53 | NUR ---
End of Shift Notes: Patient continues to be on a modified 7-day Phenobarbital taper as ordered. No adverse reactions noted. VS monitored closely. No significant abnormalities noted. Withdrawal symptoms were closely monitored. CIWA 10. Patient presented with severe anxiety, agitation, fine tremors, facial flushing . Last CIWA 8. PRN Clonidine and Vistaril were given at 1153 due to complains of anxiety, agitation and sweats with help after 1 hour. At 1617, patient was medicated with Tylenol ES due to generalized pain with mild help after 1 hour. Robaxin 750 mg PO given at 1817. Labs done, noted with significant abnormalities in the patient's labs. Dr. Tillman made aware with new orders. Per patient, Phenobarbital has been helping her with her withdrawal symptoms. Needs encouragement to comply with meds and treatment. Unable to participate in group and therapy sessions. Will continue to monitor closely.
[2016-09-05] MEDS ORDERED: IV NS 1000 ML 1,000 ML IV PRN (19:00)
--- NOTE | 2016-09-05 19:15 | NUR ---
START OF SHIFT Received 25 year old female patient admitted on 09/02/16 for Xanax and Klonopin dependency. Pt is full code with NKA. She is on a controlled carb diet. She reports a PMHx of DM type I, heart attack 2013 & 2015, kidney disease, ankle bilateral fracture, anxiety, seizure, panic disorder, diabetic neuropathy, CAD, unspecified arrhythmia, HTN, and dyslipidemia. She report taking Xanax PO 8 mg daily for 2 months, last dose 8 mg on 09/01/16, Klonopin 4 mg daily for 2 months. Last dose was 4 mg on 09/01/16. She is placed on a modified phenobarbital taper started on 09/02/16. Pt currently on day 3 of her modified taper and tolerating well. Per endorsement, pt received PRN Clonidine and Vistaril. She is also scheduled for IV fluids NS at 150 mL/hr x12 hours. Pt is alert and oriented x4, breathing is even and unlabored, safety measurse in place. Will continue to monitor.
[2016-09-05 20:00] VITALS: BP 118/75
[2016-09-05] MEDS ORDERED: MAGNESIUM OXIDE 400 MG TABLET PO ONE (20:30)
[2016-09-05] MEDS ORDERED: NEUTRA PHOS PACKET PO ONE (20:30)
--- NOTE | 2016-09-05 21:34 | NUR ---
NURSING NOTE Pt with decreased Mg of 1.5 and Phosphate of 2.2. MD with new order for Mag Ox 800 mg and Neutrophos packet. New orders administered. Will continue to monitor.
[2016-09-05] MEDS: QUETIAPINE FUMARATE 200 MG TABLET PO SCH (21:36)
--- NOTE | 2016-09-05 21:59 | NUR ---
ACCU CHECK Pt's BS 244. Pt was educated on s/s of hyperglycemia. Pt verbalized understanding but continues to consume snacks. No s/s of hyperglycemia noted. Breathing is even and unlabored, respirations 16. Safety measures in place. Will continue to monitor.
[2016-09-05] MEDS ORDERED: TRAMADOL HCL 50 MG TABLET PO SCH (22:30)
--- NOTE | 2016-09-05 22:34 | NUR ---
REASSESSMENT One time order of Tramadol effective. Pt lying comfortably in bed noted to be asleep. No facial grimacing noted. Breathing is even and unlabored, safety measures in place. Will monitor.
[2016-09-05 22:57] LABS: CREATININE 0.9 mg/dL (0.6-1.3); MAGNESIUM 1.7 mg/dL (1.8-2.4); POTASSIUM 4.1 mmol/L (3.5-5.1)
[2016-09-05 22:59] LABS: MEAN CORPUSCULAR VOLUME 88.5 FL (81.0-99.0); MONOCYTES # (AUTO) 0.4 K/UL (0.1-1.30)
[2016-09-05 23:06] LABS: BASOPHILS # (AUTO) 0.2 K/uL (0.0-8.0); BASOPHILS % (AUTO) 1.1 % (0.0-2.0); EOSINOPHILS # (AUTO) 0.2 K/uL (0.0-0.7); EOSINOPHILS % (AUTO) 1.1 % (0.0-7.0); HEMATOCRIT 39.4 % (37-47); HEMOGLOBIN 12.7 G/DL (12.0-16.0); LYMPHOCYTES # (AUTO) 3.2 K/UL (0.8-4.8); LYMPHOCYTES % (AUTO) 16.3 % (20.5-51.5); MEAN CORPUSCULAR HEMOGLOBIN 28.5 UUG (27.0-31.0); MEAN CORPUSCULAR HGB CONC 32 g/dL (32.0-37.0); MONOCYTES % (AUTO) 1.9 % (0.0-11.0); NEUTROPHILS # (AUTO) 15.4 K/UL (1.8-8.9); NEUTROPHILS % (AUTO) 79.6 % (38.5-71.5); PLATELET COUNT (AUTO) 183 K/UL (150-450); RED BLOOD CELL COUNT(AUTO) 4.45 MIL/UL (4.2-5.4); WHITE BLOOD COUNT (AUTO) 19.4 K/UL (4.0-11.2)
[2016-09-05 23:16] LABS: BAND % (MANUAL) 3 % (0-10); EOSINOPHILS % (MANUAL) 2 % (0-8); LYMPHOCYTES % (MANUAL) 24 % (20-40); MONOCYTES % (MANUAL) 1 % (2-10); NEUTROPHILS % (MANUAL) 70 % (42-75)
[2016-09-06] VITALS: BP 112/72
[2016-09-06] MEDS: METHOCARBAMOL 750 MG TABLET PO PRN ×3 (01:34→22:06)
--- NOTE | 2016-09-06 01:34 | NUR ---
PRN ROBAXIN Pt complains of body/muscle aches 09/28. PRN Robaxin administered as ordered. Breathing is even and unlabored, safety measures in place. Will monitor effectiveness.
--- NOTE | 2016-09-06 01:45 | NUR ---
IV INSERTION Pt with 22 gauge peripheral IV on right forearm. IV site is intact, no s/s of infiltration noted. 1L NS infusing at 150 mL/hr. Pt is tolerating well. Will continue to monitor. Addendum: 09/06/16 at 0319 by TAMIA AGUILERA RN Pt receiving fluids for hydration.
--- NOTE | 2016-09-06 02:34 | NUR ---
PRN ROBAXIN REASSESSMENT PRN medication effective. Pt lying in bed with eyes closed noted to be asleep. No facial grimacing noted. Breathing is even and unlabored, respirations 16. Will continue to monitor.
[2016-09-06 04:00] VITALS: BP 115/61
--- NOTE | 2016-09-06 04:00 | NUR ---
CIWA DEFERRED CIWA deferred d/t pt lying in bed with eyes closed noted to be asleep. Respirations 16, breathing is even and unlabored, safety measures in place. Will continue monitor.
--- NOTE | 2016-09-06 07:06 | NUR ---
END OF SHIFT Pt is a 25 year old female patient admitted on 09/02/16 for Xanax and Klonopin dependency. Pt is full code with NKA. She is on a controlled carb diet. She reports a PMHx of DM type I, heart attack 2013 & 2015, kidney disease, ankle bilateral fracture, anxiety, seizure, panic disorder, diabetic neuropathy, CAD, unspecified arrythmia, HTN, and dyslipidemia. She continues on a modified phenobarbital taper started on 09/02/16 and tolerating well. She received a one time order for Tramadol d/t complains of pain, and at 0134 she received PRN Robaxin for complains of body aches. Pt with 22 gauge IV on right forearm with NS running at 150mL/hr. Last Accu check for 2100 was 244. She slept a total of 5 hrs, Intake: 745 mL, Void: x3, BM: 0, CIWA: 5 Pt remains alert and oriented x4, breathing is even and unlabored, safety measures in place. Will endorse to oncoming shift.
--- NOTE | 2016-09-06 07:31 | NUR ---
BEGINNING OF SHIFT Patient endorsement report received from air deodorizer servicer nurse, all pertinent information discussed. Patient is a 25 year old female, NKA. Admitted on 09/02/2016. Admitting Dx: bzo dependence. currently with ongoing modified phenobarbital taper as ordered and is currently on day 5 of taper. Patient slept for 5 hours as per air deodorizer servicer. Also with last ciwa score of: 6. During air deodorizer servicer patient received PRN : tramadol one time dose as ordered by MD. Patient with Saline lock on right forearm 22 gauge NS at 150ml/hr. Patient received in bed awake, alert and oriented x4. Educated regarding plan of care for the day and medication regimen with good verbal understanding. Patients IV site intact, no s/sx of infiltration/infection noted. Safety measures in place. call light kept with in reach, fall and seizure precautions observed. Will continue to monitor closely.
[2016-09-06] MEDS: BLOOD SUGAR DIAGNOSTIC 1 EACH STRIP VI SCH ×4 (07:59→22:18)
[2016-09-06 08:00] LABS: BASOPHILS # (AUTO) 0.1 K/uL (0.0-8.0); BASOPHILS % (AUTO) 0.7 % (0.0-2.0); EOSINOPHILS # (AUTO) 0.4 K/uL (0.0-0.7); EOSINOPHILS % (AUTO) 2.3 % (0.0-7.0); HEMATOCRIT 39.9 % (37-47); LYMPHOCYTES # (AUTO) 3.4 K/UL (0.8-4.8); LYMPHOCYTES % (AUTO) 22.3 % (20.5-51.5); MEAN CORPUSCULAR HGB CONC 33 g/dL (32.0-37.0); MEAN CORPUSCULAR VOLUME 89.1 FL (81.0-99.0); MONOCYTES # (AUTO) 0.6 K/UL (0.1-1.30); NEUTROPHILS # (AUTO) 10.9 K/UL (1.8-8.9); NEUTROPHILS % (AUTO) 70.7 % (38.5-71.5); PLATELET COUNT (AUTO) 202 K/UL (150-450); RED BLOOD CELL COUNT(AUTO) 4.48 MIL/UL (4.2-5.4); WHITE BLOOD COUNT (AUTO) 15.4 K/UL (4.0-11.2)
[2016-09-06 08:05] VITALS: BP 106/60
[2016-09-06 08:06] LABS: CREATININE 0.8 mg/dL (0.6-1.3); MAGNESIUM 1.8 mg/dL (1.8-2.4); PHOSPHOROUS 3.9 mg/dL (2.5-4.9); POTASSIUM 3.6 mmol/L (3.5-5.1)
[2016-09-06] MEDS: LOSARTAN POTASSIUM 50 MG TABLET PO SCH (08:10)
[2016-09-06] MEDS: FOLIC ACID 1 MG TABLET PO SCH (08:11)
[2016-09-06] MEDS: DOCUSATE SODIUM 250 MG CAPSULE PO SCH (08:11)
[2016-09-06] MEDS: BACLOFEN 20 MG TABLET PO SCH ×4 (08:11→22:10)
[2016-09-06] MEDS: MULTIVITAMINS,THERAPEUTIC TABLET PO SCH (08:11)
[2016-09-06] MEDS: METOPROLOL TARTRATE 25 MG TABLET PO SCH ×2 (08:11→22:07)
[2016-09-06] MEDS: ESCITALOPRAM OXALATE 10 MG TABLET PO SCH (08:11)
[2016-09-06] MEDS: THIAMINE HCL 100 MG TABLET PO SCH (08:11)
[2016-09-06] MEDS: LAMOTRIGINE 25 MG TABLET PO SCH ×2 (08:11→22:08)
[2016-09-06] MEDS: HYDROXYZINE PAMOATE 25 MG CAPSULE PO SCH ×4 (08:11→22:07)
[2016-09-06] MEDS: ASPIRIN 81 MG TAB.CHEW PO SCH (08:11)
[2016-09-06] MEDS: DICYCLOMINE HCL 20 MG TABLET PO SCH ×3 (08:11→22:11)
[2016-09-06] MEDS: SCOPOLAMINE HYDROBROMIDE 1.5 MG PATCH TD SCH (08:12)
[2016-09-06] MEDS: DIVALPROEX ER 500 MG TAB.SR.24H PO SCH ×2 (08:12→22:11)
[2016-09-06] MEDS: PHENOBARBITAL 60 MG TABLET PO SCH ×3 (08:12→22:07)
[2016-09-06] MEDS: ISOSORBIDE DINITRATE 30 MG PO SCH (08:12)
[2016-09-06] MEDS: NICOTINE 14 MG/24HR PATCH TD SCH (08:18)
[2016-09-06] MEDS: PREGABALIN 25 MG CAPSULE PO SCH ×3 (09:09→22:09)
--- NOTE | 2016-09-06 09:09 | NUR ---
PRN ROBAXIN Patient continues to complain of muscle aches and pains 08/28. Medicated patient with Robaxin 750 mg PO as ordered. Will monitor for effectiveness.
[2016-09-06 10:07] LABS: EOSINOPHILS % (MANUAL) 3 % (0-8); LYMPHOCYTES % (MANUAL) 24 % (20-40); MONOCYTES % (MANUAL) 5 % (2-10); NEUTROPHILS % (MANUAL) 68 % (42-75)
--- NOTE | 2016-09-06 10:09 | NUR ---
ROBAXIN REASSESSMENT Patient reports medication with relief, current pain level 2/10, tolerable as per patient.
--- NOTE | 2016-09-06 11:00 | NUR ---
MD COMMUNICATION IVF D/C Per patient refusing IVF, risk vs benefits were explained with good verbal understanding. Notified Dr. Tillman as per ok to D/C. Saline lock D/C, aseptic technique observed at all times, procedure explained prior to removal with good verbal understanding, procedure well tolerated. patient was encouraged to increase PO fluid intake as tolerated. Will continue to monitor closely.
[2016-09-06 12:54] VITALS: BP 118/75
[2016-09-06] MEDS ORDERED: IBUPROFEN 800 MG TABLET PO PRN (13:45)
[2016-09-06 17:34] VITALS: BP 124/77
--- NOTE | 2016-09-06 18:58 | NUR ---
END OF SHIFT Patient alert and oriented x4, vital signs stable during shift. Patient compliant with therapeutic plan of care. Patient continues on modified phenobarbital taper as ordered. 0900 assessment patient presented with: tremors that can be felt but not seen, barely sweating, anxiety and mild agitation with ciwa score of: 7; 1300 assessment patient presented with: tremors that can be felt but not seen, barely sweating, anxiety and mild agitation with ciwa score of: 7; 1700 assessment patient presented with: tremors that can be felt but not seen, anxiety, mild agitation with ciwa score of: 4. Blood sugar monitored during shift as ordered, patient was compliant with accuccheck. No episodes of hyper/hypoglycemia noted. Patients IVF discontinued during shift, noted consuming PO fluids as tolerated. During shift administered Robaxin as ordered, medication was effective one hour post administration. Patient compliant with plan of care during shift. Safety measures in place. call light kept with in reach. Patient endorsement report given to shift supervisor film processing nurse, all pertinent information discussed. Patient encouraged to attend group/therapy sessions to learn new coping skills to prevent relapse, noted attending and participating, denies SI/HI. safety measures in place. will continue to monitor.
--- NOTE | 2016-09-06 19:15 | NUR ---
START OF SHIFT Received 26 year old female patient admitted on 09/02/16 for Xanax and Klonopin dependency. Pt is full code with NKA. She is on a controlled carb diet. She reports a PMHx of DM type I, heart attack 2013 & 2015, kidney disease, ankle bilateral fracture, anxiety, seizure, panic disorder, diabetic neuropathy, CAD, unspecified arrhythmia, HTN, and dyslipidemia. She report taking Xanax PO 8 mg daily for 2 months, last dose 8 mg on 09/01/16, Klonopin 4 mg daily for 2 months. Last dose was 4 mg on 09/01/16. She is placed on a modified phenobarbital taper started on 09/02/16 and tolerating well. Per endorsement, pt received PRN Robaxin. Her IV fluids were DC'd. Pt is alert and oriented x4, breathing is even and unlabored, safety measures in place. Will continue to monitor.
[2016-09-06 20:00] VITALS: BP 127/82
--- NOTE | 2016-09-06 22:00 | NUR ---
ACCU CHECK Pt's BS 393. No s/s of hyperglycemia noted. Educated pt on diet. Pt verbalized understanding. Pt awake, alert, and oriented x4. Breathing is even and unlabored. Safety measures in place. Will continue to monitor.
[2016-09-06] MEDS: QUETIAPINE FUMARATE 200 MG TABLET PO SCH (22:08)
[2016-09-07] VITALS: BP 99/50
--- NOTE | 2016-09-07 | NUR ---
CIWA DEFERRED Pt lying in bed with eyes closed noted to be asleep. Respirations 16, breathing is even and unlabored. Safety measures in place. Will continue to monitor.
--- NOTE | 2016-09-07 03:28 | NUR ---
PRN CLONIDINE Pt complains of anxiety/agitation. Pt observed to be restless. PRN Clonidine administered as ordered. Breathing is even and unlabored, safety measures in place. Will monitor effectiveness.
[2016-09-07 04:00] VITALS: BP 112/75
--- NOTE | 2016-09-07 04:28 | NUR ---
PRN CLONIDINE REASSESSMENT Pt reports decrease in anxiety/agitation. Pt resting comfortably in bed. No facial grimacing noted. Breathing is even and unlabored, respirations 16, safety measures in place. Will continue to monitor.
--- NOTE | 2016-09-07 07:21 | NUR ---
END OF SHIFT Pt is a 26 year old female patient admitted on 09/02/16 for Xanax and Klonopin dependency. Pt is full code with NKA. She continues on a modified phenobarbital taper started on 09/02/16 and tolerating well. At 0327 pt received PRN Clonidine. She slept a total of 7hrs, Intake:710mL Void:x2 BM:0 CIWA: 2. Pt remains alert and oriented x4, breathing is even and unlabored, safety measurse in place. Will continue to monitor.
[2016-09-07] MEDS: BLOOD SUGAR DIAGNOSTIC 1 EACH STRIP VI SCH ×4 (07:50→21:00)
--- NOTE | 2016-09-07 07:51 | NUR ---
BEGINNING OF SHIFT Patient endorsement report received from police shift commander nurse, all pertinent information discussed. Patient is a 25 year old female, NKA. Admitted on 09/02/2016. Admitting Dx: bzo dependence. currently with ongoing modified phenobarbital taper as ordered. Patient slept for 7 hours as per police shift commander. Also with last ciwa score of: 2. During police shift commander patient received PRN : clonidine as ordered. Patient received in bed awake, alert and oriented x4. Educated regarding plan of care for the day and medication regimen with good verbal understanding. Will also monitor Blood sugar as ordered. Safety measures in place. call light kept with in reach, fall and seizure precautions observed. Will continue to monitor closely.
[2016-09-07 08:06] VITALS: BP 127/76
[2016-09-07] MEDS: ASPIRIN 81 MG TAB.CHEW PO SCH (08:53)
[2016-09-07] MEDS: THIAMINE HCL 100 MG TABLET PO SCH (08:53)
[2016-09-07] MEDS: ESCITALOPRAM OXALATE 10 MG TABLET PO SCH (08:53)
[2016-09-07] MEDS: DIVALPROEX ER 500 MG TAB.SR.24H PO SCH ×2 (08:53→22:21)
[2016-09-07] MEDS: BACLOFEN 20 MG TABLET PO SCH ×4 (08:54→22:20)
[2016-09-07] MEDS: PHENOBARBITAL 60 MG TABLET PO SCH ×2 (08:54→22:22)
[2016-09-07] MEDS: HYDROXYZINE PAMOATE 25 MG CAPSULE PO SCH ×4 (08:54→22:20)
[2016-09-07] MEDS: FOLIC ACID 1 MG TABLET PO SCH (08:54)
[2016-09-07] MEDS: PREGABALIN 25 MG CAPSULE PO SCH ×3 (08:54→22:22)
[2016-09-07] MEDS: LAMOTRIGINE 25 MG TABLET PO SCH ×2 (08:54→22:20)
[2016-09-07] MEDS: DOCUSATE SODIUM 250 MG CAPSULE PO SCH (08:55)
[2016-09-07] MEDS: LOSARTAN POTASSIUM 50 MG TABLET PO SCH (08:55)
[2016-09-07] MEDS: DICYCLOMINE HCL 20 MG TABLET PO SCH ×3 (08:55→21:00)
[2016-09-07] MEDS: ISOSORBIDE DINITRATE 30 MG PO SCH (08:55)
[2016-09-07] MEDS: METHOCARBAMOL 750 MG TABLET PO PRN ×2 (08:55→22:45)
[2016-09-07] MEDS: METOPROLOL TARTRATE 25 MG TABLET PO SCH ×2 (08:55→22:21)
[2016-09-07] MEDS: MULTIVITAMINS,THERAPEUTIC TABLET PO SCH (08:55)
[2016-09-07] MEDS: NICOTINE 14 MG/24HR PATCH TD SCH (09:00)
[2016-09-07] MEDS ORDERED: BLOOD SUGAR DIAGNOSTIC 1 EACH STRIP VI PRN (11:19)
[2016-09-07 13:50] VITALS: BP 92/68
[2016-09-07 14:47] LABS: BASOPHILS # (AUTO) 0.2 K/uL (0.0-8.0); BASOPHILS % (AUTO) 1.2 % (0.0-2.0); EOSINOPHILS # (AUTO) 0.2 K/uL (0.0-0.7); EOSINOPHILS % (AUTO) 1.4 % (0.0-7.0); HEMATOCRIT 42.4 % (37-47); HEMOGLOBIN 13.6 G/DL (12.0-16.0); LYMPHOCYTES # (AUTO) 2.8 K/UL (0.8-4.8); LYMPHOCYTES % (AUTO) 19.5 % (20.5-51.5); MEAN CORPUSCULAR HEMOGLOBIN 28.9 UUG (27.0-31.0); MEAN CORPUSCULAR HGB CONC 32 g/dL (32.0-37.0); MONOCYTES # (AUTO) 0.3 K/UL (0.1-1.30); MONOCYTES % (AUTO) 1.9 % (0.0-11.0); NEUTROPHILS # (AUTO) 11.1 K/UL (1.8-8.9); PLATELET COUNT (AUTO) 258 K/UL (150-450); RED BLOOD CELL COUNT(AUTO) 4.71 MIL/UL (4.2-5.4); WHITE BLOOD COUNT (AUTO) 14.6 K/UL (4.0-11.2)
[2016-09-07 14:52] LABS: CREATININE 1.1 mg/dL (0.6-1.3); MAGNESIUM 1.6 mg/dL (1.8-2.4); PHOSPHOROUS 4.5 mg/dL (2.5-4.9); POTASSIUM 4.7 mmol/L (3.5-5.1)
--- NOTE | 2016-09-07 15:18 | NUR ---
MD COMMUNICATION received blood glucose level result of 380, notified Dr. Enrique Tillman with no new orders at this time. Per MD patient self administer insulin with insulin pump. MD also notified of patients magnesium levels, with new orders fo magnesium oxide 800mg by mouth one time dose, MD unable to input order, order was read back and verified with MD, noted and carried out. will continue to monitor.
[2016-09-07 15:21] LABS: BAND % (MANUAL) 3 % (0-10); EOSINOPHILS % (MANUAL) 1 % (0-8); LYMPHOCYTES % (MANUAL) 21 % (20-40); MONOCYTES % (MANUAL) 3 % (2-10); NEUTROPHILS % (MANUAL) 72 % (42-75)
--- NOTE | 2016-09-07 15:50 | NUR ---
MD COMMUNICATION Patient reports she has a yeast infection, reports which thick vaginal discharge and vaginal itchiness, notified Dr. Enrique Tillman with new orders for fluconazole 150mg PO one time dose, unable to input order, order was read back and verified with MD, noted and carried out. will continue to monitor.
[2016-09-07] MEDS ORDERED: MAGNESIUM OXIDE 400 MG TABLET PO ONE (16:00)
[2016-09-07] MEDS ORDERED: INSULIN LISPRO 1000 UNITS/10 ML VIAL(HUMALOG) SQ ONE (16:45)
--- NOTE | 2016-09-07 16:50 | NUR ---
BLOOD SUGAR-MD COMMUNICATION 2929 blood glucose check: 513, patient currently with no sliding scale, patient uses own insulin pump, as per patient for glucose level of 513 requires additional coverage via SQ injection, Patient states she takes 13 units for 513 reading, notified Dr. Enrique Tillman, Per Md cochran for patient to receive 13 units of Humalog (human insulin lispro) 13 units SQ one time dose, MD unable to input order, order was read back and verified, noted and carried out. Per pharmacy and MD cochran for patient to use own Humalog brought from home. Medication administered as ordered. Will continue to monitor patient closely. Patient encouraged to increase PO fluid intake, and compliance with diet. Patient at times non compliant with diet restrictions. will continue to monitor.
[2016-09-07] MEDS ORDERED: FLUCONAZOLE 100 MG TABLET PO ONE (17:00)
[2016-09-07 17:30] VITALS: BP 142/76
--- NOTE | 2016-09-07 19:08 | NUR ---
END OF SHIFT Patient alert and oriented x4, vital signs stable during shift. Patient compliant with therapeutic plan of care. Patient continues on modified phenobarbital taper as ordered. 0900 assessment patient presented with:Tremors that can be felt but not seen, and anxiety with ciwa score of: 4; 1300 assessment patient presented with: Tremors that can be felt but not seen, and anxiety with ciwa score of: 4; 1700 assessment patient presented with: Tremors that can be felt but not seen, and anxiety with ciwa score of: 4. Blood sugar monitored during shift as ordered, patient was compliant with accuccheck. 1630 blood sugar of 513, was administered additional coverage as ordered, well tolerated. During shift administered Robaxin as ordered, medication was effective one hour post administration. Patient compliant with plan of care during shift. Safety measures in place. call light kept with in reach. Patient endorsement report given to night coordinator nurse, all pertinent information discussed. Patient encouraged to attend group/therapy sessions to learn new coping skills to prevent relapse, noted attending and participating, denies SI/HI. safety measures in place. will continue to monitor.
--- NOTE | 2016-09-07 19:15 | NUR ---
Start of Shift Note: Patient is a 26 y/o female admitted on 09/02/16 for Benzo dependence. Patient reported using Xanax 8mg daily ad Klonopin 4mg daily for 2 months. She reports a PMHx of DM type I, heart attack 2013 & 2015, kidney disease, ankle bilateral fracture, anxiety, seizure, panic disorder, diabetic neuropathy, CAD, unspecified arrhythmia, HTN, and dyslipidemia. Patient currently on modified phenorparbital taper and tolerating well. Patient received PRN Robaxin during day shift. Last CIWA is 4. Patient is alert & oriented x4. Patient is ambulatory with a steady gait. No shortness of breath noted. Respiration even & unlabored. Abdomen soft & non-distended. No nausea/vomiting noted. Patient complaining of 6/10 generalized body aches & mild anxiety. Patient denies hallucinations. Safety precautions are in place. Bed locked in lowest position. Both side rails up. Call light within pt's reach. Will continue to monitor patient.
[2016-09-07 20:00] VITALS: BP 132/79
[2016-09-07] MEDS: QUETIAPINE FUMARATE 200 MG TABLET PO SCH (22:21)
--- NOTE | 2016-09-07 22:45 | NUR ---
PRN Robaxin Patient complains of 6/10 generalized body aches. PRN Robaxin administered as ordered. Will monitor for effectiveness of medication.
--- NOTE | 2016-09-07 23:45 | NUR ---
PRN Reassessment Patient reported medication is effective. 2/10 bodyaches noted at this time. Patient lying in bed and appears comfortable. Will continue to monitor patient.
[2016-09-08] VITALS (7 sets, daily range): BP systolic 109–149; BP diastolic 74–88
--- NOTE | 2016-09-08 00:33 | NUR ---
Start of Shift Note: Patient is a 26 y/o female admitted on 09/02/16 for Benzo dependence. Patient reported using Xanax 8mg daily ad Klonopin 4mg daily for 2 months. She reports a PMHx of DM type I, heart attack 2013 & 2015, kidney disease, ankle bilateral fracture, anxiety, seizure, panic disorder, diabetic neuropathy, CAD, unspecified arrhythmia, HTN, and dyslipidemia. Patient completed her phenobarbital taper and she is scheduled to be discharge tomorrow. Urine drug screen collected and resulted. Patient did not received any PRN medications during day shift. Last CIWA is 2. Patient is alert & oriented x4. Patient is ambulatory with a steady gait. No shortness of breath noted. Respiration even & unlabored. Abdomen soft & non-distended. No nausea/vomiting noted. Patient complaining of 6/10 muscle cramping & mild anxiety. Patient denies hallucinations. No hand tremors noted. Safety precautions are in place. Bed locked in lowest position. Both side rails up. Call light within pt's reach. Will continue to monitor patient. Addendum: 09/09/16 at 0035 by CL BUCIO RN ERROR on time. Pls disregard
--- NOTE | 2016-09-08 06:48 | NUR ---
End of Shift Note: Patient had un uneventful night. Patient continues on her Phenobarbital taper with no adverse reactions noted. Blood sugar was 147 mg/dl during my shift. Patient was educated regarding compliance in diet. Patient received PRN Robaxin as ordered during my shift and was effective. last CIWA is 2. Patient remained stable and Vitals remains WNL. Patient was awake the whole night. Patient has just fallen asleep at around 0600am. Patient consumed 850ml of fluids and Voided 2x. No bowel movement noted. All needs attended & met. Safety measures in place. Will endorse pt to day shift nurse.
--- NOTE | 2016-09-08 07:39 | NUR ---
BEGINNING OF SHIFT Patient endorsement report received from slot shift manager nurse, all pertinent information discussed. Patient is a 25 year old female, NKA. Admitted on 09/02/2016. Admitting Dx: bzo dependence. currently with ongoing modified phenobarbital taper as ordered. Patient slept for 1 hours as per slot shift manager. Also with last ciwa score of: 2. During slot shift manager patient received PRN : Robaxin as ordered. Patient received in bed awake, alert and oriented x4. Educated regarding plan of care for the day and medication regimen with good verbal understanding. Will also monitor Blood sugar as ordered. Safety measures in place. call light kept with in reach, fall and seizure precautions observed. Will continue to monitor closely.
[2016-09-08] MEDS: BLOOD SUGAR DIAGNOSTIC 1 EACH STRIP VI SCH ×4 (07:41→21:00)
[2016-09-08 08:14] LABS: BASOPHILS # (AUTO) 0.1 K/uL (0.0-8.0); BASOPHILS % (AUTO) 1.3 % (0.0-2.0); EOSINOPHILS # (AUTO) 0.3 K/uL (0.0-0.7); EOSINOPHILS % (AUTO) 2.3 % (0.0-7.0); HEMATOCRIT 40.7 % (37-47); HEMOGLOBIN 13.6 G/DL (12.0-16.0); LYMPHOCYTES # (AUTO) 3.6 K/UL (0.8-4.8); LYMPHOCYTES % (AUTO) 32.9 % (20.5-51.5); MEAN CORPUSCULAR HEMOGLOBIN 29.8 UUG (27.0-31.0); MEAN CORPUSCULAR HGB CONC 33 g/dL (32.0-37.0); MEAN CORPUSCULAR VOLUME 89.1 FL (81.0-99.0); MONOCYTES # (AUTO) 0.6 K/UL (0.1-1.30); MONOCYTES % (AUTO) 5.3 % (0.0-11.0); NEUTROPHILS # (AUTO) 6.4 K/UL (1.8-8.9); NEUTROPHILS % (AUTO) 58.2 % (38.5-71.5); PLATELET COUNT (AUTO) 216 K/UL (150-450); RED BLOOD CELL COUNT(AUTO) 4.57 MIL/UL (4.2-5.4)
[2016-09-08 08:30] LABS: MAGNESIUM 1.8 mg/dL (1.8-2.4); PHOSPHOROUS 3.6 mg/dL (2.5-4.9); POTASSIUM 4.1 mmol/L (3.5-5.1)
--- NOTE | 2016-09-08 08:35 | NUR ---
MD COMMUNICATION received blood glucose level result of 383, from lab reported by "chan' notified Dr. Calvert with no new orders at this time. MD also notified of patients blood glucose level of 429 for 0730, Per MD patient self administer insulin with insulin pump. will continue to monitor.
[2016-09-08] MEDS: ASPIRIN 81 MG TAB.CHEW PO SCH (08:37)
[2016-09-08] MEDS: HYDROXYZINE PAMOATE 25 MG CAPSULE PO SCH ×4 (08:37→22:14)
[2016-09-08] MEDS: FOLIC ACID 1 MG TABLET PO SCH (08:37)
[2016-09-08] MEDS: MULTIVITAMINS,THERAPEUTIC TABLET PO SCH (08:37)
[2016-09-08] MEDS: DICYCLOMINE HCL 20 MG TABLET PO SCH ×3 (08:37→22:14)
[2016-09-08] MEDS: THIAMINE HCL 100 MG TABLET PO SCH (08:37)
[2016-09-08] MEDS: PREGABALIN 25 MG CAPSULE PO SCH ×3 (08:37→22:13)
[2016-09-08] MEDS: LOSARTAN POTASSIUM 50 MG TABLET PO SCH (08:37)
[2016-09-08] MEDS: METOPROLOL TARTRATE 25 MG TABLET PO SCH ×2 (08:37→22:25)
[2016-09-08] MEDS: DOCUSATE SODIUM 250 MG CAPSULE PO SCH (08:37)
[2016-09-08] MEDS: DIVALPROEX ER 500 MG TAB.SR.24H PO SCH ×2 (08:37→22:13)
[2016-09-08] MEDS: ESCITALOPRAM OXALATE 10 MG TABLET PO SCH (08:37)
[2016-09-08] MEDS: NICOTINE 14 MG/24HR PATCH TD SCH (08:38)
[2016-09-08] MEDS: BACLOFEN 20 MG TABLET PO SCH ×4 (08:38→22:14)
[2016-09-08] MEDS: ISOSORBIDE DINITRATE 30 MG PO SCH (08:38)
[2016-09-08] MEDS: LAMOTRIGINE 25 MG TABLET PO SCH ×2 (08:50→22:14)
[2016-09-08] MEDS ORDERED: PHENOBARBITAL 60 MG TABLET PO SCH (09:00)
[2016-09-08 17:42] LABS: *AMPHETAMINE, URINE NEGATIVE (NEGATIVE); *BARBITURATE, URINE POSITIVE (NEGATIVE); *CANNABINOID, URINE NEGATIVE (NEGATIVE); *COCCAINE, URINE NEGATIVE (NEGATIVE); *OPIATE, URINE NEGATIVE (NEGATIVE); *PHENCYCLIDINE SCREEN,URINE NEGATIVE (NEGATIVE)
--- NOTE | 2016-09-08 18:37 | NUR ---
END OF SHIFT Patient alert and oriented x4, vital signs stable during shift. Patient compliant with therapeutic plan of care. Patient continues on modified phenobarbital taper as ordered, and completed taper, patient is scheduled to be discharged tomorrow, noted self motivated towards sobriety. 0900 assessment patient presented with:mild anxiety and mild agitation with ciwa score of: 2; 1300 assessment patient presented with: mild anxiety and mild agitation with ciwa score of: 2; 1700 assessment patient presented with: mild anxiety and mild agitation with ciwa score of: 2. Blood sugar monitored during shift as ordered, patient was compliant with accuccheck. Patient compliant with plan of care during shift. Safety measures in place. call light kept with in reach. Patient endorsement report given to awake overnight counselor nurse, all pertinent information discussed. Patient encouraged to attend group/therapy sessions to learn new coping skills to prevent relapse, noted attending and participating, denies SI/HI. safety measures in place. will continue to monitor.
--- NOTE | 2016-09-08 19:15 | NUR ---
Start of Shift Note: Patient is a 26 y/o female admitted on 09/02/16 for Benzo dependence. Patient reported using Xanax 8mg daily ad Klonopin 4mg daily for 2 months. She reports a PMHx of DM type I, heart attack 2013 & 2015, kidney disease, ankle bilateral fracture, anxiety, seizure, panic disorder, diabetic neuropathy, CAD, unspecified arrhythmia, HTN, and dyslipidemia. Patient completed her phenobarbital taper and she is scheduled to be discharge tomorrow. Urine drug screen collected and resulted. Patient did not received any PRN medications during day shift. Last CIWA is 2. Patient is alert & oriented x4. Patient is ambulatory with a steady gait. No shortness of breath noted. Respiration even & unlabored. Abdomen soft & non-distended. No nausea/vomiting noted. Patient complaining of 6/10 muscle cramping & mild anxiety. Patient denies hallucinations. No hand tremors noted. Safety precautions are in place. Bed locked in lowest position. Both side rails up. Call light within pt's reach. Will continue to monitor patient.
--- NOTE | 2016-09-08 21:30 | NUR ---
BS check Patient checked her blood sugar using her own glucometer at bedside and noted with [id number].
[2016-09-08] MEDS: QUETIAPINE FUMARATE 200 MG TABLET PO SCH (22:14)
[2016-09-08] MEDS: METHOCARBAMOL 750 MG TABLET PO PRN (22:25)
--- NOTE | 2016-09-08 22:25 | NUR ---
PRN Robaxin Patient complains of muscle crampings and 5/10 generalized body aches. PRN Robaxin administered as ordered. Will continue to monitor patient.
--- NOTE | 2016-09-08 23:25 | NUR ---
PRN Reassessment Patient verbalized relief from body aches and less muscle cramping. PRN Robaxin administered effective. Will continue to monitor patient.
[2016-09-08] MEDS ORDERED: CLONIDINE HCL 0.1 MG TABLET PO PRN (23:45)
--- NOTE | 2016-09-08 23:45 | NUR ---
PRN Clonidine Patient complaining of sweating, chills, & anxiety. PRN Clonidine administered as ordered. Will continue to monitor patient.
--- NOTE | 2016-09-09 00:45 | NUR ---
PRN Reassessment Patient verbalized decreased in anxiety and denies sweating and chills at this time. PRN medication effective. Will continue to monitor.
--- NOTE | 2016-09-09 07:12 | NUR ---
End of Shift Note: Patient had un uneventful night. Patient completed her Phenobarbital taper and she is scheduled to be discharge. Urine drug screen collected and resulted. Pt self checked her Blood sugar and it was 282 mg/dl at 2100. Patient was educated regarding compliance in diet. Patient received PRN Robaxin & Clonidine as ordered during my shift and was effective. last CIWA is 3. Patient remained stable and Vitals remains WNL. Patient slept for a total of 6 hours. Patient consumed 920 ml of fluids and Voided 3x. No bowel movement noted. All needs attended & met. Safety measures in place. Will endorse pt to day shift nurse.
[2016-09-09] MEDS: BLOOD SUGAR DIAGNOSTIC 1 EACH STRIP VI SCH (07:30)
--- NOTE | 2016-09-09 07:31 | NUR ---
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 To be discharged this AM. Pt is alert and oriented X4. Color good skin warm and dry. Respirations even and unlabored. Resting in bed. Pt refuses Accucheck. States "I will do my own." Safety precautions observed. Call light in reach.
[2016-09-09 08:00] VITALS: BP 117/71
[2016-09-09] MEDS: LOSARTAN POTASSIUM 50 MG TABLET PO SCH (08:08)
[2016-09-09] MEDS: BACLOFEN 20 MG TABLET PO SCH (08:08)
[2016-09-09] MEDS: FOLIC ACID 1 MG TABLET PO SCH (08:08)
[2016-09-09] MEDS: PREGABALIN 25 MG CAPSULE PO SCH (08:08)
[2016-09-09] MEDS: DOCUSATE SODIUM 250 MG CAPSULE PO SCH (08:08)
[2016-09-09] MEDS: ASPIRIN 81 MG TAB.CHEW PO SCH (08:09)
[2016-09-09] MEDS: MULTIVITAMINS,THERAPEUTIC TABLET PO SCH (08:09)
[2016-09-09] MEDS: HYDROXYZINE PAMOATE 25 MG CAPSULE PO SCH (08:09)
[2016-09-09] MEDS: LAMOTRIGINE 25 MG TABLET PO SCH (08:09)
[2016-09-09 08:10] VITALS: BP 120/70
[2016-09-09] MEDS: ISOSORBIDE DINITRATE 30 MG PO SCH (08:10)
[2016-09-09] MEDS: DIVALPROEX ER 500 MG TAB.SR.24H PO SCH (08:10)
[2016-09-09] MEDS: METOPROLOL TARTRATE 25 MG TABLET PO SCH (08:10)
[2016-09-09] MEDS: THIAMINE HCL 100 MG TABLET PO SCH (08:10)
[2016-09-09] MEDS: ESCITALOPRAM OXALATE 10 MG TABLET PO SCH (08:11)
[2016-09-09] MEDS: NICOTINE 14 MG/24HR PATCH TD SCH (08:16)
[2016-09-09] MEDS: DICYCLOMINE HCL 20 MG TABLET PO SCH (08:16)
[2016-09-09] MEDS: SCOPOLAMINE HYDROBROMIDE 1.5 MG PATCH TD SCH (08:17)
--- NOTE | 2016-09-09 09:02 | NUR ---
VSS Pt performed her own blood sugar which was 245. Discharge papers signed and medication bags.
--- NOTE | 2016-09-09 09:48 | NUR ---
Pt left in stable condition with all valuables, belongings and home meds. Pt denies SI/HI[facility]
== END 2016-09-09 10:21 | disposition home or self-care (01) | DRG 895 ==
LOC: SRC 09-02 13:28
PROVIDERS: ADMIT Internal Medicine; ATTEND Internal Medicine
PROC: HZ2ZZZZ Detoxification Services for Substance Abuse Treatment (ICD-10-PCS; principal; 2016-09-02)
PROC: HZ31ZZZ Individual Counseling for Substance Abuse Treatment, Behavioral (ICD-10-PCS; 2016-09-03)
PROC: HZ41ZZZ Group Counseling for Substance Abuse Treatment, Behavioral (ICD-10-PCS; 2016-09-05)
DX: F10.239 Alcohol dependence with withdrawal, unspecified (principal); F31.32 Bipolar disorder, current episode depressed, moderate; F13.230 Sedative, hypnotic or anxiolytic dependence with withdrawal, uncomplicated; Y90.9 Presence of alcohol in blood, level not specified; E10.42 Type 1 diabetes mellitus with diabetic polyneuropathy; Z96.41 Presence of insulin pump (external) (internal); Z79.4 Long term (current) use of insulin; I25.2 Old myocardial infarction; I25.10 Atherosclerotic heart disease of native coronary artery without angina pectoris; Z95.5 Presence of coronary angioplasty implant and graft; E78.5 Hyperlipidemia, unspecified; I49.9 Cardiac arrhythmia, unspecified; F11.21 Opioid dependence, in remission; F15.21 Other stimulant dependence, in remission; I10 Essential (primary) hypertension; F41.0 Panic disorder [episodic paroxysmal anxiety]; Z91.11 Patient's noncompliance with dietary regimen; F17.210 Nicotine dependence, cigarettes, uncomplicated; D72.823 Leukemoid reaction
CPT/HCPCS: 36415; 70030-TC; 80307; 80346; 83690; 83735; 84075; 84100; 84443; 84703; 85025; 86580; 86592; 86705; 86803; 87340; 87806; G0480; J3490; J7030; J8499; Q0162